=== PATIENT | male | born 1965 | race Hispanic/Latino ===

== ENCOUNTER 2021-07-30 17:51 | Emergency (ER) | payer OTHER ==
[~2021-07-30] VITALS: Ht 172.7 cm; Wt 94.5 kg
[2021-07-30] MEDS ORDERED: NAPROSYN500 MG PO (18:20)
[2021-07-30] MEDS ORDERED: CRUTCH1 EACH (18:21)
[2021-07-30] MEDS ORDERED: SIMVASTATIN40 MG PO (18:33)
[2021-07-30] MEDS ORDERED: HYDROCHLOROTH12.5 M1 PO (18:33)
[2021-07-30] MEDS ORDERED: ASPIRIN81 MG PO (18:33)
[2021-07-30] MEDS ORDERED: LISINOPRIL40 MG PO (18:33)
== END 2021-07-30 18:40 | disposition home or self-care (01) ==
LOC: ED 17:51
DX: S93.402A Sprain of unspecified ligament of left ankle, initial encounter (principal); X50.1XXA Overexertion from prolonged static or awkward postures, initial encounter; Z88.1 Allergy status to other antibiotic agents
CPT/HCPCS: 73610; 99283-25

== ENCOUNTER 2022-02-03 18:24 | Emergency (ER) | payer OTHER ==
[~2022-02-03] VITALS: Ht 172.7 cm; Wt 94.5 kg
[~2022-02-03 18:24] MED LIST: ASPIRIN81 MG PO; CRUTCH1 EACH; HYDROCHLOROTH12.5 M1 PO; LISINOPRIL40 MG PO; NAPROSYN500 MG PO; SIMVASTATIN40 MG PO
[2022-02-03] MEDS ORDERED: HYDROCODON-ACE1 EA10 PO (19:45)
== END 2022-02-03 20:00 | disposition home or self-care (01) ==
LOC: ED 18:24
DX: M51.36 Other intervertebral disc degeneration, lumbar region (principal); I10 Essential (primary) hypertension; Z88.8 Allergy status to other drugs, medicaments and biological substances; Z79.82 Long term (current) use of aspirin; Z79.899 Other long term (current) drug therapy
CPT/HCPCS: 72100; A9270; J1885; J3360

== ENCOUNTER 2022-06-20 17:27 | Emergency (ER) | payer OTHER ==
[~2022-06-20] VITALS: Ht 172.7 cm; Wt 96.6 kg
[~2022-06-20 17:27] MED LIST changes: +HYDROCODON-ACE1 EA10 PO
[2022-06-20] MEDS ORDERED: ULTRAM50 MG PO (20:33)
== END 2022-06-20 21:08 | disposition home or self-care (01) ==
LOC: ED 17:27
DX: S43.402A Unspecified sprain of left shoulder joint, initial encounter (principal); I10 Essential (primary) hypertension; E78.00 Pure hypercholesterolemia, unspecified; Z88.1 Allergy status to other antibiotic agents; Z79.899 Other long term (current) drug therapy; Z79.82 Long term (current) use of aspirin; X58.XXXA Exposure to other specified factors, initial encounter
CPT/HCPCS: 73030; 96372; 99283-25; A9270; J1885; J3360

== ENCOUNTER 2023-08-06 09:37 | Emergency (ER) | payer OTHER ==
[~2023-08-06] VITALS: Ht 172.7 cm; Wt 89.2 kg
[~2023-08-06 09:37] MED LIST changes: +BENZONATATE200 MG PO; +CEFDINIR300 MG PO; +DOXYCYCLINE HY100 M3 PO; +ULTRAM50 MG PO; +VENTOLIN HFA18 GM INH
--- OUTSIDE RECORDS SUMMARY | 2023-08-06 09:41 | XMS ---
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 PHONE: [phone] SALTY RIVERA PHONE: Unknown ERUM LARIOS Emergency Medicine Current PHONE: Unknown [facility] Internal Medicine Current PHONE: Unknown [facility] PHONE: [phone] Wily has no Care Guidelines for this patient. Trey VISIT COUNT (12 MO.) 2 STORMY Mcneil [employer] fav[employer]or.it TOTAL 3 NOTE: Visits indicate total known visits. ED/UCC VISIT TRACKING (12 MO.) 08/06/2023 09:38 STORMY [place]oe[place] TYPE: Emergency COMPLAINT: - COUGH, CONGESTION, FEVER, CHILLS 08/04/2023 21:40 [facility] [place] TYPE: Emergency DIAGNOSES: - Influenza due to other identified influenza virus with other respiratory manifestations - FEVER 06/04/2023 01:32 STOR[facility] [place] [place] TYPE: Emergency COMPLAINT: - COLD SYMPTOMS DIAGNOSES: - Allergy status to other antibiotic agents - Contact with and (suspected) exposure to COVID-19 - Cough, unspecified - Essential (primary) hypertension - Pneumonia, unspecified organism INPATIENT VISIT TRACKING (12 MO.) No inpatient visits to display in this time frame [id number]
[2023-08-06] MEDS ORDERED: AMOX TR-K CLV1 EAC1 PO (10:42)
[2023-08-06 11:03] VITALS: BP 148/98
== END 2023-08-06 11:06 | disposition home or self-care (01) ==
LOC: ED 09:37
DX: J18.9 Pneumonia, unspecified organism (principal); I10 Essential (primary) hypertension; E78.00 Pure hypercholesterolemia, unspecified; Z88.1 Allergy status to other antibiotic agents; Z79.899 Other long term (current) drug therapy; Z79.82 Long term (current) use of aspirin
CPT/HCPCS: 71045; 99283-25

== ENCOUNTER 2024-05-17 04:07 | Emergency (ER) | payer OTHER ==
[~2024-05-17] VITALS: Ht 172.7 cm; Wt 95.0 kg
[~2024-05-17 04:07] MED LIST changes: +AMOX TR-K CLV1 EAC1 PO; +CELECOXIB100 MG PO; +METFORMIN HCL500 M1 PO; +TAMSULOSIN HCL0.4 MG PO
[2024-05-17 04:46] LABS: BASOPHILS 0.7 % (0-2); EOSINOPHILS 1.9 % (0-6); HEMOGLOBIN 15.9 g/dL (12.0-18.0); LYMPHOCYTES 28.4 % (24-44); MCH 32.7 (27-36); MCHC 34.6 g/dl (30-36); MCV 94.4 fl (81-99); MONOCYTES 6.7 % (0-12); NEUTROPHILS 62.3 % (39-80); PLATELET COUNT 227 K/uL (140-440); RBC 4.88 M/ul (4.3-5.7); RDW 13.4 (10.5-15.0)
[2024-05-17] MEDS ORDERED: FAMOTIDINE 20 MG/ 2 ML VIAL IV ONE (05:00)
[2024-05-17] MEDS ORDERED: SUCRALFATE 1 GM TAB PO ONE (05:00)
[2024-05-17 05:01] LABS: AMPHETAMINES, URINE NEGATIVE (NEGATIVE); BARBITURATES, URINE NEGATIVE (NEGATIVE); BENZODIAZEPINE, URINE NEGATIVE (NEGATIVE); BUPRENORPHINE, URINE NEGATIVE (NEGATIVE); CANNABINOID, URINE NEGATIVE (NEGATIVE); COCAINE, URINE NEGATIVE (NEGATIVE); ECSTASY, URINE NEGATIVE (NEGATIVE); FENTANYL, URINE NEGATIVE (NEGATIVE); METHADONE, URINE NEGATIVE (NEGATIVE); OPIATES, URINE NEGATIVE (NEGATIVE); OXYCODONE, URINE NEGATIVE (NEGATIVE); PHENCYCLIDINE, URINE NEGATIVE (NEGATIVE)
[2024-05-17 05:05] LABS: ALBUMIN 4.2 g/dL (3.4-5.0); ALBUMIN/GLOBULIN RATIO 1.31 (1.1-2.4); ALCOHOL, MEDICAL <3 ng/dL (<3); ALKALINE PHOSPHATASE 98 U/L (46-116); ALT (SGPT) 111 U/L (14-59); ANION GAP 10.1 (7-21); AST (SGOT) 42 U/L (15-37); BILIRUBIN, TOTAL 0.9 ng/dL (0.2-1.0); BUN/CREATININE RATIO 15.15 (6.0-28.6); CALCIUM 9.3 mg/dL (8.5-10.1); CARBON DIOXIDE 31 mmol/L (21-32); CHLORIDE 102 mmol/L (98-107); CREATININE, SERUM 1.32 mg/dL (0.70-1.30); GLOMERULAR FILTRATION RATE,EST 62 mL/min (>60); POTASSIUM 3.1 mmol/L (3.5-5.1); PROTEIN, TOTAL 7.4 g/dL (6.4-8.2); UREA NITROGEN 20 mg/dL (7-18)
[2024-05-17] MEDS ORDERED: CARAFATE1 GM PO (05:30)
[2024-05-17 05:43] VITALS: BP 130/85
--- NOTE | 2024-05-17 21:36 | EKG ---
[facility] [address] [facility] [place] [address] Signed Normal sinus rhythm Left axis deviation Abnormal ECG No previous ECGs available Confirmed by Sylvia Beavers MD () on 05/17/2024 9:35:47 PM Electronically Signed By: SYLVIA BEAVERS MD 05/17/24 2136 PATIENT NAME: SHANNON BELLORickey [place]ER[place] Electrocardiogram DATE OF : 61 PHYSICIAN: SYLVIA BEAVERS MD REPORT #: [id number] REPORT IS CONFIDENTIAL AND NOT TO BE RELEASED WITHOUT AUTHORIZATION
== END 2024-05-17 05:44 | disposition home or self-care (01) ==
LOC: ED 04:07
PROVIDERS: Internal Medicine
DX: T52.0X1A Toxic effect of petroleum products, accidental (unintentional), initial encounter (principal); R10.84 Generalized abdominal pain; R11.2 Nausea with vomiting, unspecified; I10 Essential (primary) hypertension; E11.9 Type 2 diabetes mellitus without complications; Z79.84 Long term (current) use of oral hypoglycemic drugs; Z79.899 Other long term (current) drug therapy
CPT/HCPCS: 36415; 80053; 80307; 83690; 83735; 84484; 85025; 93005; 93010; 96374; 99284-25; G0480

== ENCOUNTER 2024-07-28 14:52 | Emergency (ER) | payer OTHER ==
[~2024-07-28] VITALS: Ht 172.7 cm; Wt 96.0 kg
[~2024-07-28 14:52] MED LIST changes: +CARAFATE1 GM PO
[2024-07-28] MEDS ORDERED: OFLOXACIN5 ML OTIC (15:01)
[2024-07-28] MEDS ORDERED: TADALAFIL5 M1 PO (15:01)
[2024-07-28] MEDS ORDERED: NEOMYCIN-POLYMY10 ML OTIC (15:01)
[2024-07-28] MEDS ORDERED: LIDOCAINE/RACEPINEP/TETRACAINE 3 ML SYR TOP ONE (17:45)
[2024-07-28 19:13] VITALS: BP 108/52
== END 2024-07-28 19:13 | disposition home or self-care (01) ==
LOC: ED 14:52
DX: H61.22 Impacted cerumen, left ear (principal); I10 Essential (primary) hypertension; E11.9 Type 2 diabetes mellitus without complications; E78.00 Pure hypercholesterolemia, unspecified; Z88.1 Allergy status to other antibiotic agents; Z79.1 Long term (current) use of non-steroidal anti-inflammatories (NSAID); Z79.84 Long term (current) use of oral hypoglycemic drugs; Z79.899 Other long term (current) drug therapy
CPT/HCPCS: 69209; 99282-25

== ENCOUNTER 2025-01-13 13:53 | Emergency (ER) | payer OTHER ==
[~2025-01-13] VITALS: Ht 172.7 cm; Wt 91.5 kg
[~2025-01-13 13:53] MED LIST changes: +NEOMYCIN-POLYMY10 ML OTIC; +OFLOXACIN5 ML OTIC; +TADALAFIL5 M1 PO
[2025-01-13 14:14] LABS: BASOPHILS 1.1 % (0-2); EOSINOPHILS 0.6 % (0-6); HEMATOCRIT 48.6 % (35.0-50.0); LYMPHOCYTES 27.5 % (24-44); MCH 33.1 (27-36); MCHC 35.1 g/dl (30-36); MCV 94.3 fl (81-99); MONOCYTES 6.6 % (0-12); NEUTROPHILS 64.2 % (39-80); PLATELET COUNT 219 K/uL (140-440); RBC 5.15 M/ul (4.3-5.7); RDW 14.2 (10.5-15.0)
[2025-01-13] MEDS ORDERED: SODIUM CHLORIDE 0.9% 1,000 ML IV PRN ×3 (14:15→15:45)
[2025-01-13 14:31] LABS: ALBUMIN 4.1 g/dL (3.4-5.0); ALBUMIN/GLOBULIN RATIO 1.32 (1.1-2.4); ANION GAP 12.4 (7-21); BILIRUBIN, TOTAL 1.1 mg/dL (0.2-1.0); BUN/CREATININE RATIO 11.45 (6.0-28.6); CALCIUM 9.1 mg/dL (8.5-10.1); CREATININE, SERUM 1.92 mg/dL (0.70-1.30); MAGNESIUM 1.8 mg/dL (1.8-2.4); POTASSIUM 3.4 mmol/L (3.5-5.1); PROTEIN, TOTAL 7.2 g/dL (6.4-8.2)
[2025-01-13 17:02] VITALS: BP 108/70
--- NOTE | 2025-01-13 22:05 | EKG ---
[facility] [address] [facility] [place] [address] Signed Sinus rhythm with premature atrial complexes with aberrant conduction Left axis deviation Abnormal ECG When compared with ECG of 17-MAY-2024 04:59, aberrant conduction is now present Nonspecific T wave abnormality no longer evident in Anterior leads Confirmed by Sylvia Olivares MD () on 01/13/2025 10:04:58 PM Electronically Signed By: SYLVIA OLIVARES MD 01/13/25 2205 PATIENT NAME: EDILSON SALINASSKY Montiel Electrocardiogram DATE OF : 61 PHYSICIAN: SYLVIA OLIVARES MD REPORT #: [id number] REPORT IS CONFIDENTIAL AND NOT TO BE RELEASED WITHOUT AUTHORIZATION
== END 2025-01-13 17:55 | disposition home or self-care (01) ==
LOC: ED 13:53
PROVIDERS: Emergency Medicine
DX: I95.9 Hypotension, unspecified (principal); I10 Essential (primary) hypertension; E11.9 Type 2 diabetes mellitus without complications; Z88.1 Allergy status to other antibiotic agents; Z79.899 Other long term (current) drug therapy
CPT/HCPCS: 36415; 80053; 83735; 84484; 85025; 93005; 93010; 96360; 96361; 99284-25; J7030

== ENCOUNTER 2025-01-16 10:36 | Emergency (ER) | payer OTHER ==
[~2025-01-16] VITALS: Ht 172.7 cm; Wt 93.4 kg
--- OUTSIDE RECORDS SUMMARY | 2025-01-16 10:43 | XMS ---
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 Events No recent Security Events currently on file CRITERIA MET - [facility] - 2 Visits in 30 Days CARE PROVIDERS -[facility] Dentist: Food Runner [facility] [place] PHONE: [phone] -Evan- Dentist: Food Runner [facility] Dental [facility] PHONE: [phone] [facility] Emergency [facility] EMERGENCY PHYSICIANS [facility] PHONE: [phone] SALTY RIVERA PHONE: [phone] ERUM LARIOS [facility] Current PHONE: Unknown [facility] Current PHONE: Unknown TEJAS WHYTE Family Medicine: Obesity Medicine Current PHONE: [phone] [facility] PHONE: [phone] DORIE HEDRICK Family Medicine Current [facility] PHONE: Unknown Wily has no Care Guidelines for this patient. Trey VISIT COUNT (12 MO.) 4 STORMY Shipman TOTAL 4 NOTE: Visits indicate total known visits. ED/UCC VISIT TRACKING (12 MO.) 01/16/2025 10:37 [facility] [place] TYPE: Emergency COMPLAINT: - WEAKNESS 01/13/2025 13:54 STORMY Vass HBarbie Paige [place] TYPE: Emergency COMPLAINT: - DIZZINESS 07/28/2024 14:52 STORMY Salinastrevor CastroBarbie Paige [place] TYPE: Emergency COMPLAINT: - EAR PAIN DIAGNOSES: - Allergy status to other antibiotic agents - Essential (primary) hypertension - Impacted cerumen, left ear - buttermaker (current) use of non-steroidal anti-inflammatories (NSAID) - buttermaker (current) use of oral hypoglycemic drugs - Otalgia, left ear - Other residential (current) drug therapy - Pure hypercholesterolemia, unspecified - Type 2 diabetes mellitus without complications 05/17/2024 04:08 STORMY Vass Yamel Paige [place] TYPE: Emergency COMPLAINT: - STOMACH ISSUES DIAGNOSES: - Essential (primary) hypertension - Generalized abdominal pain - senior care (current) use of oral hypoglycemic drugs - Nausea with vomiting, unspecified - Other oil heaterman (current) drug therapy - Toxic effect of petroleum products, accidental (unintentional), initial encounter - Type 2 diabetes mellitus without complications INPATIENT VISIT TRACKING (12 MO.) No inpatient visits to display in this time frame [id number]
[2025-01-16 11:16] LABS: BASOPHILS 0.7 % (0-2); EOSINOPHILS 0.8 % (0-6); HEMATOCRIT 47.6 % (35.0-50.0); HEMOGLOBIN 16.9 g/dL (12.0-18.0); LYMPHOCYTES 26.6 % (24-44); MCH 33.1 (27-36); MCHC 35.5 g/dl (30-36); MCV 93.3 fl (81-99); MONOCYTES 10.9 % (0-12); PLATELET COUNT 180 K/uL (140-440); RDW 13.7 (10.5-15.0)
[2025-01-16 11:33] LABS: INR 1.01 (0.80-1.30); PROTIME 12.7 Sec (11.2-14.2)
[2025-01-16 11:37] LABS: ALBUMIN 3.9 g/dL (3.4-5.0); ALBUMIN/GLOBULIN RATIO 1.15 (1.1-2.4); ANION GAP 9.1 (7-21); BILIRUBIN, TOTAL 0.9 mg/dL (0.2-1.0); BUN/CREATININE RATIO 14.87 (6.0-28.6); CREATININE, SERUM 1.21 mg/dL (0.70-1.30); POTASSIUM 3.1 mmol/L (3.5-5.1); PROTEIN, TOTAL 7.3 g/dL (6.4-8.2)
[2025-01-16 13:14] LABS: BILIRUBIN, URINE NEGATIVE (negative); BLOOD/HGB, URINE MODERATE (Negative); KETONE, URINE NEGATIVE (Negative); LEUK ESTERASE, URINE NEGATIVE (negative); NITRITE, URINE NEGATIVE (negative); PH, URINE 6.5 (5-7)
[2025-01-16 13:22] LABS: EPITHELIAL CELLS, URINE SQUAMOUS 1+ /lpf (0-1+); REFLEX CULTURE, URINE No (No); WHITE BLOOD CELLS, URINE 0-1 /HPF (0-5)
[2025-01-16 15:32] VITALS: BP 120/92
== END 2025-01-16 15:30 | disposition home or self-care (01) ==
LOC: ED 10:36
PROVIDERS: Emergency Medicine
DX: R31.9 Hematuria, unspecified (principal); I10 Essential (primary) hypertension; E11.9 Type 2 diabetes mellitus without complications; Z88.1 Allergy status to other antibiotic agents
CPT/HCPCS: 36415; 74177; 80053; 81001; 83605; 85025; 85610; 85730; 99284-25; Q9967